=== PATIENT | male | born 1980 | race Caucasian/White ===

== ENCOUNTER → 2018-09-13 13:46 | Outpatient (CLI) | payer OTHER, SELFPAY ==
--- NOTE | 2018-09-13 | DI.MRI.S_ITS ---
PROCEDURE: MR HAND RT WO/W CON INDICATIONS: ARTHROPATHY TECHNIQUE: Coronal and axial T1 spin echo and T2 fast spin echo with fat saturation. Post-contrast coronal and axial T1 spin echo with fat saturation images through the right hand and wrist. COMPARISON: [facility], CR, XR HAND 3+ VIEWS BILATERAL, 08/09/2018, 11:58. FINDINGS: Image quality: Excellent. Bones and cartilage: Suggestion of old healed fracture involving right fifth metacarpal shaft is seen with chronic appearing deformity. Questionable edema surrounding the fifth PIP joint is seen. There is no area of bony erosion or cortical destruction. Joint spaces are well-preserved. No suspicious intraosseous lesion or area of abnormal contrast enhancement Synovium: No abnormal thickening of the synovial lining is seen. At nonspecific enhancement of synovial lining is noted throughout the interphalangeal joints, very early synovitis secondary to inflammatory arthropathy cannot be entirely excluded. Soft tissues: There is no soft tissue mass or fluid collection. Extensor and flexor tendons of right hand are grossly intact. IMPRESSION: 1. Old healed fracture involving the fifth metacarpal shaft. No acute fracture or dislocation. Questionable lateral edema surrounding fifth PIP joint, most likely represent artifact secondary to inhomogeneous fat saturation. No area of abnormal intraosseous enhancement is seen. No bony erosive changes are noted. Joint spaces are well-preserved. 2. No abnormal synovial lining thickening. Nonspecific mild enhancement of synovium and throughout interphalangeal joints, very early synovitis secondary to inflammatory arthropathy cannot be excluded. 3. No area of abnormal soft tissue enhancement. Dictated by: Boy Joya M.D. on 09/14/2018 at 9:26 Approved by: Boy Joya M.D. on 09/14/2018 at 9:44
== END ==
PROVIDERS: Visit Provider Specialist/Technologist Athletic Trainer
DX: M19.041 Primary osteoarthritis, right hand (principal); Z87.81 Personal history of (healed) traumatic fracture
CPT/HCPCS: 73220; A9579